=== PATIENT | male | born 1950 | race Caucasian/White ===

== ENCOUNTER → 2023-09-25 09:27 | Outpatient (CLI) | payer MEDICARE, OTHER, SELFPAY ==
--- NOTE | 2023-09-25 | DI.NM.S_ITS ---
PROCEDURE: NM SARA PERF SPECT REST & STR Rest and exercise myocardial perfusion SPECT with gated imaging and ejection fraction RADIOPHARMACEUTICAL: 26.9 mCi Tc-99m sestamibi IV at rest and 14.5 mCi Tc-99m sestamibi IV at peak exercise. A two day-protocol was performed. INDICATIONS: Atherosclerotic heart disease of [place] TECHNIQUE: Radiopharmaceutical was injected at peak stress test, and also at rest. SPECT images were obtained. SPECT myocardial perfusion images were displayed in short axis, horizontal long axis, and vertical long axis views. Gated images were reviewed using Archetypes software. COMPARISON: None. CARDIAC STRESS: A standard Fredrick treadmill exercise tolerance test was performed by the patient under the supervision of an attending staff. The patient exercised for 11 minutes and 0 seconds; functional aerobic impairment ([place]) is -59%. Hemodynamic data: There is normal blood pressure and heart rate response to exercise stress. Patient achieved 86% of maximum predicted heart rate at peak exercise. Symptoms: Patient denied chest pain during exercise. EKG: Resting ECG showed sinus rhythm with no ST changes. Very mild horizontal ST depression in the anterolateral leads during recovery; occasional PVCs present. FINDINGS: Raw data: There is good myocardial labeling by radiotracer. No significant motion artifacts. Left ventricle function: Gated images demonstrate normal left ventricle wall thickening. No segmental wall motion abnormality. No transient ischemic dilation; TID is 1.0 (normal less than 1.3). The left ventricle resting end-diastolic volume is 99 mL. Left ventricle stress ejection fraction is 72%; normal values are above 45%. Myocardial perfusion: There is normal distribution of activity in the left and right ventricular myocardium. No fixed or reversible perfusion defects noted on stress prone images. IMPRESSION: Low risk, normal treadmill nuclear stress test 1) No perfusion evidence of ischemia or infarction. 2) Normal left ventricular size, wall motion, and systolic function (EF post stress 72%). 3) Very mild horizontal ST depression in the anterolateral leads during recovery. 4) No angina during the study. 5) Excellent exercise tolerance (12.8METs, [place] -59%). Target heart rate achieved. Appropriate BP response to exercise. 6) Compared to the nuclear stress test done 04/01/2016, no perfusion defects are present on this study. Dictated by: Lizzie Pinedo MD on 09/26/2023 at 13:07 Approved by: Lizzie Pinedo MD on 09/26/2023 at 13:11
== END ==
PROVIDERS: PCP Family Medicine; Referring Provider Family Medicine; Visit Provider Family Medicine
DX: I25.10 Atherosclerotic heart disease of native coronary artery without angina pectoris (principal)
CPT/HCPCS: 78452; 93017; A9502

== ENCOUNTER → 2024-09-11 10:12 | Outpatient (CLI) | payer MEDICARE, OTHER, SELFPAY ==
--- NOTE | 2024-09-11 10:15 | DI.RAD.S_ITS ---
PROCEDURE: XR HIP W PEL IF DONE LT 2V INDICATIONS: Pain in left hip AND LEG TECHNIQUE: Two views of the hip were acquired. COMPARISON: None. FINDINGS: Bones: There are no osseous abnormalities. SI and hip joints: Mild degenerative change present in both hips. Both SI joints are normal. Mild L5-S1 degenerative disc disease noted. Soft tissues: No soft tissue swelling, calcification or mass. IMPRESSION: Degeneration. Dictated by: Eliseo Velasquez M.D. on 09/12/2024 at 8:41 Approved by: Eliseo Velasquez M.D. on 09/12/2024 at 8:42
--- NOTE | 2024-09-11 10:15 | DI.RAD.S_ITS ---
PROCEDURE: XR LUMBAR SPINE MIN 4V INDICATIONS: Pain in left hip AND LEG TECHNIQUE: 5 views of the lumbar spine were acquired, including bilateral oblique views. COMPARISON: None. FINDINGS: Lumbar spine curvature and alignment: Normal. Bones: There are no osseous abnormalities. Disc spaces: Mild L4-5 and moderate L5-S1 degenerative disc and facet disease noted. Moderate bilateral hip degeneration also seen. Soft tissues: No soft tissue swelling, calcification or mass. IMPRESSION: Degeneration. Dictated by: Eliseo Velasquez M.D. on 09/12/2024 at 8:44 Approved by: Eliseo Velasquez M.D. on 09/12/2024 at 8:45
== END ==
PROVIDERS: PCP Family Medicine; Referring Provider Family Medicine; Visit Provider Family Medicine
DX: M16.0 Bilateral primary osteoarthritis of hip (principal); M51.361 Other intervertebral disc degeneration, lumbar region with lower extremity pain only; M51.371 Other intervertebral disc degeneration, lumbosacral region with lower extremity pain only; M47.816 Spondylosis without myelopathy or radiculopathy, lumbar region; M47.817 Spondylosis without myelopathy or radiculopathy, lumbosacral region; M25.552 Pain in left hip; M79.605 Pain in left leg
CPT/HCPCS: 72110; 73502

== ENCOUNTER → 2024-09-26 07:05 | Outpatient (CLI) | payer MEDICARE, OTHER, SELFPAY ==
--- NOTE | 2024-09-26 | DI.MRI.S_ITS ---
PROCEDURE: MR LUMBAR SPINE WO CON INDICATIONS: Spinal stenosis, lumbar region with neurogenic claudication TECHNIQUE: Noncontrast sagittal T1 spin echo and T2 fast echo, sagittal STIR, and T2 fast spin echo through the lumbar spine. In cases with scoliosis, additional coronal T2 fast spin echo may be performed. COMPARISON: [facility], CR, XR LUMBAR SPINE MIN 4V, 09/11/2024, 10:17. FINDINGS: Image quality: Excellent. Alignment and Curvature: There is minimal retrolisthesis at L1-L2, with minimal to mild retrolisthesis at L2-L3. Minimal retrolisthesis is seen at L3-L4, L4-L5, and at L5-S1. Bone Marrow: Marrow is of normal overall signal. No acute vertebral body compression fractures. Spinal Cord: Conus medullaris terminates at the L1 level. Visualized cord demonstrates normal signal and size. Paraspinous Soft Tissues: No paravertebral masses. T12-L1: The disc height is well-preserved. Loss of disc signal is seen at this level. Mild generalized disc bulge is seen. There is a superimposed central disc protrusion. There is a focal annular fissure seen posteriorly. No significant neural foraminal narrowing can be seen. Mild central canal narrowing is seen. L1-L2: The disc height is well-preserved. Loss of disc signal is seen at this level. Mild generalized disc bulge is seen. There is a superimposed central disc protrusion. There is a focal annular fissure seen posteriorly. Moderate bilateral neural foraminal narrowing is seen. Mild central canal narrowing is seen. L2-L3: Moderate loss of disc height is seen. Loss of disc signal is seen. Moderate disc bulge is seen, with a central disc osteophyte protrusion. Reactive marrow endplate changes are seen which are hypointense on T1-weighted imaging and hyperintense on T2 weighted imaging, which is most consistent with edema (Modic type I changes). Mild facet joint hypertrophy is seen. Moderate bilateral neural foraminal narrowing can be seen, left worse than right. Moderate central canal narrowing is seen. L3-L4: The disc height is well-preserved. Loss of disc signal is seen at this level. Mild generalized disc bulge is seen. Moderate bilateral neural foraminal narrowing is seen. Mild central canal narrowing is seen. L4-L5: The disc height is well-preserved. Loss of disc signal is seen at this level. Mild generalized disc bulge is seen. There is a superimposed central disc protrusion. Moderate facet joint hypertrophy is seen. There is moderate left-sided and at least moderate right-sided neural foraminal narrowing. There is a mild degree of compression upon the exiting right L4 nerve root. Moderate central canal narrowing is seen. L5-S1: At least moderate loss of disc height and disc signal can be seen. Reactive marrow endplate changes are seen, which are hyperintense on T1-weighted and T2-weighted imaging and most consistent with fatty metaplasia (Modic type II changes). Moderate generalized disc bulge is seen. Moderate facet joint hypertrophy is seen. There is moderate to severe right-sided and at least moderate left-sided neural foraminal narrowing. There is a degree of compression seen upon the exiting nerve roots. Mild central canal narrowing is seen. IMPRESSION: Multiple levels of lumbar spine degenerative change can be seen, which are overall worst at L2-L3 and at L5-S1. Dictated by: Stiven Blair M.D. on 09/26/2024 at 11:03 Approved by: Stiven Blair M.D. on 09/26/2024 at 11:07
== END ==
PROVIDERS: PCP Family Medicine; Referring Provider Family Medicine; Visit Provider Family Medicine
DX: M47.816 Spondylosis without myelopathy or radiculopathy, lumbar region (principal); M47.817 Spondylosis without myelopathy or radiculopathy, lumbosacral region; M48.062 Spinal stenosis, lumbar region with neurogenic claudication; M48.07 Spinal stenosis, lumbosacral region; M48.8X6 Other specified spondylopathies, lumbar region
CPT/HCPCS: 72148